=== PATIENT | male | born 1970 | race Caucasian/White ===

== ENCOUNTER 2020-01-24 21:00 | Emergency (ER) | payer BC ==
[~2020-01-24] VITALS: Ht 185.4 cm; Wt 104.3 kg
[2020-01-24 21:03] VITALS: BP 134/74
[2020-01-24] MEDS ORDERED: IBUPROFEN 600 MG TABLET PO ONE (21:30)
--- NOTE | 2020-01-24 21:30 | NUR ---
PATIENT CAME TO ER BED 10 C/O RIGHT LATERAL ANKLE SWELLING WITH SLIGHT REDNESS. PATIENT IS UNSURE IF IT WAS A BUG THAT BIT HIM. PATIENT STATES, " WE HAVE A LOT OF BLACK WIDOWS IN OUR AREA", BUT NO BITE ANTONIO IS NOTED. PATIENT IS ABLE TO AMBULATE WITH A STEADY GAIT. PATIENT DENIES TAKING ANY CARDIAC MEDICATIONS REGULARLY. PATIENT DENIES TAKING ANY MEDICATION FOR THE PAIN PRIOR TO ARRIVAL TO THE ER. A/OX4. NO SOB. BREATHING EVENLY AND UNLABORED ON ROOM AIR.
[2020-01-24] MEDS ORDERED: IBUPROFEN 600 MG TABLET ONE (21:33)
== END 2020-01-24 21:43 | disposition home or self-care (01) ==
LOC: ER 21:03
DX: S90.561A Insect bite (nonvenomous), right ankle, initial encounter (principal); W57.XXXA Bitten or stung by nonvenomous insect and other nonvenomous arthropods, initial encounter; Y93.89 Activity, other specified; Y92.89 Other specified places as the place of occurrence of the external cause; Y99.8 Other external cause status